=== PATIENT | male | born 1995 | race Two or more races ===

== ENCOUNTER 2023-11-30 07:55 | Inpatient (IN) | payer MEDICAID, OTHER ==
[~2023-11-30] VITALS: Ht 172.7 cm; Wt 80.5 kg
[2023-11-30] VITALS (7 sets, daily range): BP systolic 118–136; BP diastolic 80–92; PULSE 87–111; RESP 16–24; O2SAT 98–100
[2023-11-30] MEDS: SODIUM CHLORIDE 0.9% 1,000 ML IV ONE (08:20)
[2023-11-30 08:28] LABS: Basophils # (auto) 0 10 ^3/uL (0-0.2); Basophils % (auto) 0.3 % (0.0-2.0); Eosinophils # (auto) 0 10 ^3/uL (0-0.8); Eosinophils % (auto) 0.1 % (0.0-7.0); Hematocrit 45.1 % (41.0-53.0); Lymphocytes # (auto) 0.9 10 ^3/uL (0.4-5.4); Lymphocytes % (auto) 8.3 % (10.0-50.0); Mean Corpuscular Hemoglobin 29.1 pg (28.0-32.0); Mean Corpuscular Hgb Conc. 33.2 g/dL (32.0-36.0); Mean Corpuscular Volume 87.8 fL (80.0-100.0); Monocytes # (auto) 0.7 10 ^3/uL (0-1.3); Monocytes % (auto) 6.4 % (0.0-12.0); Neutrophils # (auto) 9.6 10 ^3/uL (1.6-8.6); Neutrophils % (auto) 84.9 % (37.0-80.0); Red Blood Cells 5.14 10^6/uL (4.5-5.90); Red Cell Distribution Width 15.6 % (11.8-14.3); White Blood Cell 11.3 10^3/uL (4.4-10.8)
[2023-11-30 08:34] LABS: Chloride 106 mmol/L (98-107); Potassium 3.4 mmol/L (3.5-5.1); Sodium 138 mmol/L (136-145)
[2023-11-30 08:35] LABS: Anion Gap 9 (5-15); Carbon Dioxide 23 mmol/L (20-30)
[2023-11-30 08:40] LABS: BUN/Creatinine Ratio 8.2 (10.0-20.0); Blood Urea Nitrogen 7 mg/dL (9-23); Glucose 100 mg/dL (74-106)
[2023-11-30 08:41] LABS: Blood Alcohol < 3.0 mg/dL (<10)
[2023-11-30] MEDS ORDERED: LORazepam 2MG/ML-1ML VIAL IV PRN (11:15)
[2023-11-30] MEDS ORDERED: DOCUSATE SOD 100 MG CAP PO PRN (11:15)
[2023-11-30] MEDS ORDERED: ONDANSETRON HCL 4 MG/2 ML VIAL IV PRN (11:15)
[2023-11-30] MEDS ORDERED: HALOPERIDOL LACTATE 5 MG/ML INJ VIAL IM ONE (14:23)
[2023-11-30] MEDS ORDERED: LORazepam 2MG/ML-1ML VIAL IM ONE (14:23)
[2023-11-30] MEDS ORDERED: diphenhdrAMINE HCL 50 MG/1 ML VL IM ONE (14:23)
[2023-11-30] MEDS: HALOPERIDOL LACTATE 5 MG/ML INJ VIAL IM ONE (14:41)
[2023-11-30] MEDS: LORazepam 2MG/ML-1ML VIAL ONE (14:41)
[2023-11-30] MEDS: diphenhdrAMINE HCL 50 MG/1 ML VL IM ONE (14:41)
[2023-11-30] MEDS: LORazepam 2MG/ML-1ML VIAL IM ONE (14:41)
[2023-11-30] MEDS: HALOPERIDOL LACTATE 5 MG/ML INJ VIAL ONE ×2 (14:41→14:42)
[2023-11-30] MEDS: diphenhdrAMINE HCL 50 MG/1 ML VL ONE (14:41)
[2023-11-30] MEDS: MIDAZOLAM DRIP 50 mg/50mL 50 ML IV ONE (17:26)
[2023-11-30] MEDS: ETOMIDATE (2MG/ML) 20ML VIAL IV ONE ×2 (17:30→18:24)
[2023-11-30] MEDS: MIDAZOLAM DRIP 50 mg/50mL 50 ML IV SCH (17:30)
[2023-11-30] MEDS: ROCURONIUM 10MG/ML 10ML VIAL IV ONE ×2 (17:30→18:24)
[2023-11-30] MEDS: KETAMINE 50mg/ML 10ml Vial (500mg/10ml) IV ONE (18:15)
[2023-11-30] MEDS: FOLIC ACID 1 MG, MAGNESIUM SULF SDV 50% 8 MEQ, MULTIPLE VITAMIN 10 ML, THIAMINE INJ 100... INJ SCH (18:17)
[2023-11-30] MEDS: SODIUM CHLORIDE 0.9% 1,000 ML IV SCH (18:17)
[2023-11-30] MEDS: POTASSIUM EFFERVESENT TAB 25 MEQ PO ONE (18:22)
[2023-11-30] MEDS: chlordiazePOXIDE HCL 25 MG CAP PO SCH (18:22)
[2023-11-30 18:35] LABS: Amphetamine Screen, Urine Neg (NEGATIVE)
[2023-11-30 18:36] LABS: Barbiturate Scree,Urine Neg (NEGATIVE); Benzodiazephine Screen, Urine Neg (NEGATIVE); Cannabinoid Screen, Urine Pos (NEGATIVE); Cocaine Screen, Urine Neg (NEGATIVE); Opiate Scree,Urine Neg (NEGATIVE); Phencyclidine Screen, Urine Neg (NEGATIVE)
[2023-11-30] MEDS: PROPOFOL 100 ML IV ONE (18:51)
[2023-11-30 19:00] LABS: Urine Amorphous Crystal FEW /hpf (None Seen); Urine Bacteria FEW /hpf (None Seen); Urine Blood 3+ /uL (Negative); Urine Clarity Ex.Turbid (Clear); Urine Color Yellow (Yellow); Urine Mucus FEW (None Seen); Urine Protein, UAD 2+ (Negative); Urine Specific Gravity 1.025 (1.001-1.035); Urine Urobilinogen Normal (Negative); Urine WBC 9 /hpf (0 - 3); Urine pH 5.5 (5.0-9.0)
[2023-11-30] MEDS: PROPOFOL 100 ML IV SCH (19:25)
[2023-11-30] MEDS: fentaNYL Drip 2500mCg/250mlNS 250 ML IV SCH (20:13)
[2023-11-30 20:19] LABS: Base Excess -3.6 mmol/L (-2.0-2.0)
[2023-11-30] MEDS: fentaNYL Drip 2500mCg/250mlNS 250 ML IV ONE (21:29)
[2023-11-30] MEDS: MORPHINE SULFATE 4 MG/ML SYR/VIAL IV ONE (21:40)
[2023-12-01] VITALS (13 sets, daily range): BP systolic 100–119; BP diastolic 53–74; PULSE 74–98; RESP 16–17; O2SAT 100
[2023-12-01 05:38] LABS: Basophils # (auto) 0 10 ^3/uL (0-0.2); Basophils % (auto) 0.5 % (0.0-2.0); Eosinophils # (auto) 0.1 10 ^3/uL (0-0.8); Eosinophils % (auto) 1.1 % (0.0-7.0); Hematocrit 39.4 % (41.0-53.0); Hemoglobin 13.3 g/dL (13.5-17.5); Lymphocytes # (auto) 1.2 10 ^3/uL (0.4-5.4); Lymphocytes % (auto) 17.8 % (10.0-50.0); Mean Corpuscular Hemoglobin 29.9 pg (28.0-32.0); Mean Corpuscular Hgb Conc. 33.6 g/dL (32.0-36.0); Mean Corpuscular Volume 89.1 fL (80.0-100.0); Monocytes # (auto) 0.6 10 ^3/uL (0-1.3); Monocytes % (auto) 9.1 % (0.0-12.0); Neutrophils % (auto) 71.5 % (37.0-80.0); Nucleated Red Blood Cells % 0.1 %; Red Blood Cells 4.43 10^6/uL (4.5-5.90); Red Cell Distribution Width 16.1 % (11.8-14.3)
[2023-12-01 05:43] LABS: Alanine Aminotransferase 77 U/L (7-40); Albumin 4.2 g/dL (3.2-4.8); Alkaline Phosphatase 65 U/L (46-116); Anion Gap 10 (5-15); Aspartate Aminotransferase 101 U/L (13-40); BUN/Creatinine Ratio 9.3 (10.0-20.0); Blood Urea Nitrogen 10 mg/dL (9-23); Calcium 9.1 mg/dL (8.7-10.4); Carbon Dioxide 23 mmol/L (20-30); Chloride 113 mmol/L (98-107); Glucose 80 mg/dL (74-106); Potassium 2.9 mmol/L (3.5-5.1)
[2023-12-01 05:44] LABS: Bilirubin, Total 0.8 mg/dL (0.2-1.0); Total Protein 6.2 g/dL (5.7-8.2)
[2023-12-01 05:50] LABS: Sodium 146 mmol/L (136-145)
[2023-12-01 07:28] LABS: Base Excess -3.9 mmol/L (-2.0-2.0)
[2023-12-01] MEDS ORDERED: chlordiazePOXIDE HCL 25 MG CAP PO SCH (10:00)
[2023-12-01] MEDS: POTASSIUM CHL 20MEQ/100ML 100 ML IV SCH (11:20)
[2023-12-01] MEDS: LORazepam 2MG/ML-1ML VIAL IV SCH (14:28)
[2023-12-02] VITALS (86 sets, daily range): BP systolic 100–142; BP diastolic 45–75; PULSE 71–104; RESP 10–19; TEMP 98.5–100.2; O2SAT 99–100
[2023-12-02 07:39] LABS: Base Excess -8.8 mmol/L (-2.0-2.0)
[2023-12-02 09:00] LABS: Basophils # (auto) 0 10 ^3/uL (0-0.2); Basophils % (auto) 0.4 % (0.0-2.0); Eosinophils # (auto) 0.2 10 ^3/uL (0-0.8); Eosinophils % (auto) 2.1 % (0.0-7.0); Hematocrit 37.8 % (41.0-53.0); Hemoglobin 12.5 g/dL (13.5-17.5); Lymphocytes # (auto) 0.7 10 ^3/uL (0.4-5.4); Lymphocytes % (auto) 9.7 % (10.0-50.0); Mean Corpuscular Hemoglobin 29.8 pg (28.0-32.0); Mean Corpuscular Hgb Conc. 33.1 g/dL (32.0-36.0); Mean Corpuscular Volume 89.9 fL (80.0-100.0); Monocytes # (auto) 0.7 10 ^3/uL (0-1.3); Monocytes % (auto) 9.1 % (0.0-12.0); Neutrophils # (auto) 5.6 10 ^3/uL (1.6-8.6); Neutrophils % (auto) 78.7 % (37.0-80.0); White Blood Cell 7.2 10^3/uL (4.4-10.8)
[2023-12-02 09:07] LABS: Chloride 119 mmol/L (98-107); Potassium 3.9 mmol/L (3.5-5.1); Sodium 147 mmol/L (136-145)
[2023-12-02 09:08] LABS: Anion Gap 11 (5-15); Calcium 8.7 mg/dL (8.7-10.4); Carbon Dioxide 17 mmol/L (20-30)
[2023-12-02 09:13] LABS: BUN/Creatinine Ratio 5.3 (10.0-20.0); Blood Urea Nitrogen 6 mg/dL (9-23); Glucose 68 mg/dL (74-106)
[2023-12-02] MEDS ORDERED: chlordiazePOXIDE HCL 25 MG CAP PO SCH (10:00)
[2023-12-03] VITALS (113 sets, daily range): BP systolic 104–179; BP diastolic 54–111; PULSE 69–173; RESP 12–33; TEMP 98.1–103.1; O2SAT 88–100
[2023-12-03 04:00] LABS: Anion Gap 10 (5-15); Carbon Dioxide 21 mmol/L (20-30); Chloride 116 mmol/L (98-107); Potassium 3.7 mmol/L (3.5-5.1); Sodium 147 mmol/L (136-145)
[2023-12-03 04:01] LABS: Basophils # (auto) 0 10 ^3/uL (0-0.2); Basophils % (auto) 0.4 % (0.0-2.0); Calcium 9.3 mg/dL (8.7-10.4); Eosinophils # (auto) 0.5 10 ^3/uL (0-0.8); Hematocrit 38.6 % (41.0-53.0); Hemoglobin 13.1 g/dL (13.5-17.5); Lymphocytes # (auto) 1.4 10 ^3/uL (0.4-5.4); Lymphocytes % (auto) 17.9 % (10.0-50.0); Mean Corpuscular Hemoglobin 30.5 pg (28.0-32.0); Mean Corpuscular Hgb Conc. 33.8 g/dL (32.0-36.0); Mean Corpuscular Volume 90.1 fL (80.0-100.0); Monocytes # (auto) 0.9 10 ^3/uL (0-1.3); Monocytes % (auto) 11.1 % (0.0-12.0); Neutrophils % (auto) 64.6 % (37.0-80.0); Red Blood Cells 4.28 10^6/uL (4.5-5.90); Red Cell Distribution Width 16.9 % (11.8-14.3); White Blood Cell 7.8 10^3/uL (4.4-10.8)
[2023-12-03 04:05] LABS: Glucose 73 mg/dL (74-106)
[2023-12-03 04:06] LABS: BUN/Creatinine Ratio 7.1 (10.0-20.0); Blood Urea Nitrogen 8 mg/dL (9-23)
[2023-12-03] MEDS ORDERED: chlordiazePOXIDE HCL 25 MG CAP PO SCH (07:00)
[2023-12-03 07:49] LABS: Base Excess -8.1 mmol/L (-2.0-2.0)
[2023-12-03] MEDS: PANTOPRAZOLE 40 MG/10 ML VIAL INJ IV SCH (09:31)
[2023-12-03] MEDS: ENOXAPARIN SOD 40 MG/0.4 ML SYRINGE SC SCH (09:31)
[2023-12-03] MEDS: ACETAMINOPHEN 650 mg PER 20.3 mL UD GT PRN (17:51)
[2023-12-03] MEDS ORDERED: hydrALAZINE HCL 20 MG/ML VL IV PRN (18:30)
[2023-12-03] MEDS: SODIUM CHLORIDE 0.9% 1,000 ML IV SCH (18:44)
[2023-12-03] MEDS: FUROSEMIDE 40 MG/4 ML VIAL IV ONE (18:49)
[2023-12-03] MEDS: PIPERACILLIN-TAZOB 3.375GM 100 ML IV SCH (20:19)
[2023-12-03] MEDS: dilTIAZem 25 MG/5 ML VIAL IV ONE ×2 (21:05)
[2023-12-03] MEDS: ROCURONIUM 10MG/ML 10ML VIAL IV ONE ×2 (22:30→23:33)
[2023-12-03] MEDS: ACETAMINOPHEN IV 1000 MG/100ML (10MG/ML) IV ONE (22:30)
[2023-12-03] MEDS: ACETAMINOPHEN IV 100 ML IV ONE (23:34)
[2023-12-04] VITALS (103 sets, daily range): BP systolic 87–153; BP diastolic 43–99; PULSE 74–157; RESP 15–26; TEMP 95.5–102; O2SAT 90–100
[2023-12-04 03:18] LABS: Basophils # (auto) 0 10 ^3/uL (0-0.2); Basophils % (auto) 0.5 % (0.0-2.0); Eosinophils # (auto) 0 10 ^3/uL (0-0.8); Eosinophils % (auto) 0.2 % (0.0-7.0); Hematocrit 44.8 % (41.0-53.0); Hemoglobin 14.6 g/dL (13.5-17.5); Lymphocytes # (auto) 0.5 10 ^3/uL (0.4-5.4); Lymphocytes % (auto) 6.3 % (10.0-50.0); Mean Corpuscular Hemoglobin 29.3 pg (28.0-32.0); Mean Corpuscular Hgb Conc. 32.6 g/dL (32.0-36.0); Monocytes # (auto) 1.1 10 ^3/uL (0-1.3); Monocytes % (auto) 13.5 % (0.0-12.0); Neutrophils # (auto) 6.6 10 ^3/uL (1.6-8.6); Neutrophils % (auto) 79.5 % (37.0-80.0); Nucleated Red Blood Cells % 0.1 %; Red Blood Cells 4.98 10^6/uL (4.5-5.90); Red Cell Distribution Width 16.2 % (11.8-14.3); White Blood Cell 8.3 10^3/uL (4.4-10.8)
[2023-12-04 03:32] LABS: Chloride 110 mmol/L (98-107); Potassium 3.7 mmol/L (3.5-5.1); Sodium 144 mmol/L (136-145)
[2023-12-04 03:33] LABS: Anion Gap 13 (5-15); Carbon Dioxide 21 mmol/L (20-30)
[2023-12-04 03:38] LABS: Glucose 81 mg/dL (74-106)
[2023-12-04 03:45] LABS: Blood Urea Nitrogen < 5 mg/dL (9-23)
[2023-12-04] MEDS: FUROSEMIDE 40 MG/4 ML VIAL IV SCH (05:52)
[2023-12-04 09:26] LABS: Base Excess -4.7 mmol/L (-2.0-2.0)
[2023-12-04] MEDS: Jevity 1.2 Cal/Fiber 1 Liter GT SCH (17:06)
[2023-12-05] VITALS (106 sets, daily range): BP systolic 86–145; BP diastolic 40–110; PULSE 70–146; RESP 13–23; TEMP 97.7–101.7; O2SAT 91–100
[2023-12-05 04:25] LABS: Basophils # (auto) 0 10 ^3/uL (0-0.2); Basophils % (auto) 0.3 % (0.0-2.0); Eosinophils # (auto) 0.4 10 ^3/uL (0-0.8); Eosinophils % (auto) 3.9 % (0.0-7.0); Hematocrit 37.9 % (41.0-53.0); Hemoglobin 12.7 g/dL (13.5-17.5); Lymphocytes # (auto) 0.7 10 ^3/uL (0.4-5.4); Mean Corpuscular Hemoglobin 29.2 pg (28.0-32.0); Mean Corpuscular Hgb Conc. 33.4 g/dL (32.0-36.0); Mean Corpuscular Volume 87.4 fL (80.0-100.0); Monocytes # (auto) 0.6 10 ^3/uL (0-1.3); Monocytes % (auto) 6.5 % (0.0-12.0); Neutrophils # (auto) 7.5 10 ^3/uL (1.6-8.6); Neutrophils % (auto) 81.3 % (37.0-80.0); Red Blood Cells 4.34 10^6/uL (4.5-5.90); Red Cell Distribution Width 16.3 % (11.8-14.3); White Blood Cell 9.2 10^3/uL (4.4-10.8)
[2023-12-05 04:39] LABS: Chloride 111 mmol/L (98-107); Potassium 2.8 mmol/L (3.5-5.1); Sodium 145 mmol/L (136-145)
[2023-12-05 04:40] LABS: Anion Gap 8 (5-15); Carbon Dioxide 26 mmol/L (20-30)
[2023-12-05 04:41] LABS: Calcium 9.1 mg/dL (8.5-10.1)
[2023-12-05 04:45] LABS: Blood Urea Nitrogen 8 mg/dL (9-23); Glucose 123 mg/dL (74-106)
[2023-12-05 07:35] LABS: Base Excess 1.3 mmol/L (-2.0-2.0)
[2023-12-05] MEDS: POTASSIUM CHL 20MEQ/100ML 100 ML IV SCH ×2 (07:37→21:42)
[2023-12-05 11:35] LABS: INR 1.02 (0.9-1.15); Partial Thromboplastin Time 32.8 SEC (24.5-34.5); Prothrombin Time 10.8 sec (9.3-11.8)
[2023-12-05] MEDS: PHENobarbital SODIUM 130 MG/ML VL IV ONE (12:17)
[2023-12-05 12:30] LABS: Albumin 4.2 g/dL (3.2-4.8); Bilirubin, Total 0.6 mg/dL (0.2-1.0); Total Protein 7.2 g/dL (5.7-8.2)
[2023-12-05 13:56] LABS: Urine Bacteria FEW /hpf (None Seen); Urine Blood 1+ /uL (Negative); Urine Clarity Clear (Clear); Urine Color Light-Yellow (Yellow); Urine Protein, UAD Negative (Negative); Urine Specific Gravity 1.007 (1.001-1.035); Urine Urobilinogen Normal (Negative); Urine WBC 1 /hpf (0 - 3); Urine pH 5.5 (5.0-9.0)
[2023-12-05 16:17] LABS: Bilirubin, Direct 0.3 mg/dL (<0.3)
[2023-12-06] VITALS (104 sets, daily range): BP systolic 11–151; BP diastolic 39–99; PULSE 64–135; RESP 10–54; TEMP 97.5–99.5; O2SAT 94–100
[2023-12-06 04:56] LABS: Basophils # (auto) 0 10 ^3/uL (0-0.2); Basophils % (auto) 0.4 % (0.0-2.0); Eosinophils # (auto) 0.6 10 ^3/uL (0-0.8); Eosinophils % (auto) 8.3 % (0.0-7.0); Hematocrit 34.4 % (41.0-53.0); Hemoglobin 11.7 g/dL (13.5-17.5); Lymphocytes # (auto) 1.2 10 ^3/uL (0.4-5.4); Lymphocytes % (auto) 17.6 % (10.0-50.0); Mean Corpuscular Hemoglobin 29.8 pg (28.0-32.0); Mean Corpuscular Hgb Conc. 33.9 g/dL (32.0-36.0); Monocytes # (auto) 0.4 10 ^3/uL (0-1.3); Neutrophils # (auto) 4.8 10 ^3/uL (1.6-8.6); Neutrophils % (auto) 67.7 % (37.0-80.0); Nucleated Red Blood Cells % 0.1 %; Red Blood Cells 3.91 10^6/uL (4.5-5.90); Red Cell Distribution Width 16.3 % (11.8-14.3); White Blood Cell 7.1 10^3/uL (4.4-10.8)
[2023-12-06 05:12] LABS: Alanine Aminotransferase 26 U/L (7-40); Albumin 3.5 g/dL (3.2-4.8); Alkaline Phosphatase 95 U/L (46-116); Anion Gap 6 (5-15); Aspartate Aminotransferase 39 U/L (13-40); Blood Urea Nitrogen 12 mg/dL (9-23); Carbon Dioxide 28 mmol/L (20-30); Chloride 112 mmol/L (98-107); Glucose 104 mg/dL (74-106); Magnesium 2.5 mg/dL (1.6-2.6); Potassium 3.6 mmol/L (3.5-5.1); Sodium 146 mmol/L (136-145)
[2023-12-06 05:13] LABS: Bilirubin, Total 0.4 mg/dL (0.2-1.0); Total Protein 5.9 g/dL (5.7-8.2)
[2023-12-06 05:15] LABS: Free T3 1.89 pg/mL (2.3-4.2); Free T4 (Free Thyroxine) 0.87 ng/dL (0.89-1.76)
[2023-12-06 07:27] LABS: Base Excess 0.7 mmol/L (-2.0-2.0)
[2023-12-06] MEDS: POTASSIUM EFFERVESENT TAB 25 MEQ GT ONE (07:41)
[2023-12-06] MEDS: POTASSIUM CHL 20MEQ/100ML 100 ML IV ONE (07:41)
[2023-12-06] MEDS ORDERED: PHENobarbital SODIUM 130 MG/ML VL IV SCH ×2 (08:00)
[2023-12-06] MEDS: PHENobarbital SODIUM 65 MG/ML VL IV SCH (10:14)
[2023-12-06] MEDS ORDERED: LORazepam 2MG/ML-1ML VIAL IV SCH ×2 (15:00)
[2023-12-06] MEDS: LORazepam 2MG/ML-1ML VIAL IV PRN (15:42)
[2023-12-06] MEDS: OXYMETAZOLINE HCL 0.05 % NASAL SPRAY 15ML EACHNOSTRI ONE (16:00)
[2023-12-06] MEDS: PIPERACILLIN-TAZOB 3.375GM 100 ML IV SCH (21:41)
[2023-12-07] VITALS (40 sets, daily range): BP systolic 114–162; BP diastolic 55–109; PULSE 88–122; RESP 11–55; TEMP 98.4–100.2; O2SAT 94–100
[2023-12-07 03:59] LABS: Basophils # (auto) 0 10 ^3/uL (0-0.2); Basophils % (auto) 0.3 % (0.0-2.0); Eosinophils # (auto) 0.2 10 ^3/uL (0-0.8); Eosinophils % (auto) 1.6 % (0.0-7.0); Hematocrit 37.9 % (41.0-53.0); Hemoglobin 12.9 g/dL (13.5-17.5); Lymphocytes # (auto) 0.9 10 ^3/uL (0.4-5.4); Mean Corpuscular Hemoglobin 29.9 pg (28.0-32.0); Monocytes # (auto) 0.8 10 ^3/uL (0-1.3); Monocytes % (auto) 7.3 % (0.0-12.0); Neutrophils # (auto) 8.6 10 ^3/uL (1.6-8.6); Neutrophils % (auto) 81.8 % (37.0-80.0); Red Blood Cells 4.31 10^6/uL (4.5-5.90); Red Cell Distribution Width 16.2 % (11.8-14.3); White Blood Cell 10.5 10^3/uL (4.4-10.8)
[2023-12-07 04:01] LABS: Alanine Aminotransferase 31 U/L (7-40); Albumin 4.3 g/dL (3.2-4.8); Alkaline Phosphatase 132 U/L (46-116); Anion Gap 9 (5-15); Aspartate Aminotransferase 52 U/L (13-40); BUN/Creatinine Ratio 9.4 (10.0-20.0); Blood Urea Nitrogen 9 mg/dL (9-23); Calcium 10.1 mg/dL (8.7-10.4); Carbon Dioxide 28 mmol/L (20-30); Chloride 107 mmol/L (98-107); Glucose 104 mg/dL (74-106); Magnesium 2.2 mg/dL (1.6-2.6); Potassium 3.6 mmol/L (3.5-5.1); Sodium 144 mmol/L (136-145)
[2023-12-07 04:02] LABS: Bilirubin, Total 0.4 mg/dL (0.2-1.0); Total Protein 7.1 g/dL (5.7-8.2)
[2023-12-07] MEDS: POTASSIUM CHLORIDE 40 MEQ, LIDOCAINE 1% (LOCAL ANESTH.) 4 ML in SODIUM CHL 0.9% 250 ML IV ONE (08:23)
[2023-12-08] VITALS (8 sets, daily range): BP systolic 126–147; BP diastolic 76–95; PULSE 74–100; RESP 18–22; TEMP 98.4–100.2; O2SAT 95–98
[2023-12-08] MEDS: LORazepam 2MG/ML-1ML VIAL IV PRN (04:03)
[2023-12-08 06:18] LABS: Basophils # (auto) 0 10 ^3/uL (0-0.2); Basophils % (auto) 0.3 % (0.0-2.0); Eosinophils # (auto) 0.1 10 ^3/uL (0-0.8); Eosinophils % (auto) 0.8 % (0.0-7.0); Hematocrit 37.8 % (41.0-53.0); Hemoglobin 12.7 g/dL (13.5-17.5); Lymphocytes # (auto) 1.1 10 ^3/uL (0.4-5.4); Lymphocytes % (auto) 12.6 % (10.0-50.0); Mean Corpuscular Hemoglobin 29.2 pg (28.0-32.0); Mean Corpuscular Hgb Conc. 33.7 g/dL (32.0-36.0); Mean Corpuscular Volume 86.8 fL (80.0-100.0); Monocytes # (auto) 0.7 10 ^3/uL (0-1.3); Monocytes % (auto) 8.5 % (0.0-12.0); Neutrophils # (auto) 6.8 10 ^3/uL (1.6-8.6); Neutrophils % (auto) 77.8 % (37.0-80.0); Nucleated Red Blood Cells % 0.1 %; Red Blood Cells 4.36 10^6/uL (4.5-5.90); White Blood Cell 8.7 10^3/uL (4.4-10.8)
[2023-12-08 06:41] LABS: Alanine Aminotransferase 31 U/L (7-40); Albumin 4.3 g/dL (3.2-4.8); Alkaline Phosphatase 117 U/L (46-116); Anion Gap 12 (5-15); BUN/Creatinine Ratio 14.8 (10.0-20.0); Blood Urea Nitrogen 12 mg/dL (9-23); Calcium 9.7 mg/dL (8.7-10.4); Carbon Dioxide 23 mmol/L (20-30); Chloride 103 mmol/L (98-107); Glucose 94 mg/dL (74-106); Magnesium 2.1 mg/dL (1.6-2.6); Potassium 3.2 mmol/L (3.5-5.1); Sodium 138 mmol/L (136-145)
[2023-12-08 06:42] LABS: Aspartate Aminotransferase 50 U/L (13-40); Bilirubin, Total 0.4 mg/dL (0.2-1.0); Total Protein 7.1 g/dL (5.7-8.2)
[2023-12-08] MEDS: POTASSIUM EFFERVESENT TAB 25 MEQ GT ONE (11:47)
[2023-12-08] MEDS: chlordiazePOXIDE HCL 25 MG CAP PO PRN (19:55)
[2023-12-08] MEDS ORDERED: OLANZapine 5 MG TAB PO SCH (22:00)
[2023-12-08] MEDS: HALOPERIDOL 5 MG TAB PO SCH (22:21)
[2023-12-09] VITALS (7 sets, daily range): BP systolic 111–131; BP diastolic 54–84; PULSE 61–94; RESP 18–19; TEMP 97.9–99.6; O2SAT 97–99
[2023-12-09 06:03] LABS: Hemoglobin 13.3 g/dL (13.5-17.5)
[2023-12-09 06:05] LABS: Mean Corpuscular Hemoglobin 29.6 pg (28.0-32.0); Mean Corpuscular Hgb Conc. 34.1 g/dL (32.0-36.0); Mean Corpuscular Volume 86.9 fL (80.0-100.0); Red Blood Cells 4.49 10^6/uL (4.5-5.90); Red Cell Distribution Width 15.7 % (11.8-14.3); White Blood Cell 8.8 10^3/uL (4.4-10.8)
[2023-12-09 06:14] LABS: Basophils % (manual) 0 (0.0-2.0); Blast Cells 0; Metamyelocytes % 0; Myelocytes % 0; Promyelocytes % 0; Reactive Lymphocytes 0
[2023-12-09 06:22] LABS: Chloride 103 mmol/L (98-107); Potassium 3.2 mmol/L (3.5-5.1); Sodium 138 mmol/L (136-145)
[2023-12-09 06:23] LABS: Anion Gap 11 (5-15); Calcium 9.9 mg/dL (8.5-10.1); Carbon Dioxide 24 mmol/L (20-30)
[2023-12-09 06:26] LABS: Band Neutrophils % (manual) 3; Eosinophils % (manual) 1 (0-7); Lymphocytes % (manual) 23 (10.0-50.0); Monocytes % (manual) 5 (0-12); Platelet Estimate Increased
[2023-12-09 06:28] LABS: BUN/Creatinine Ratio 14.5 (10.0-20.0); Blood Urea Nitrogen 12 mg/dL (9-23); Glucose 93 mg/dL (74-106)
[2023-12-09] MEDS: POTASSIUM EFFERVESENT TAB 25 MEQ PO ONE (18:15)
[2023-12-10] VITALS (7 sets, daily range): BP systolic 111–146; BP diastolic 53–92; PULSE 68–92; RESP 16–18; TEMP 97.9–98.7; O2SAT 97–98
[2023-12-10 06:21] LABS: Potassium 3.4 mmol/L (3.5-5.1)
[2023-12-10] MEDS: PANTOPRAZOLE 40 MG/10 ML VIAL INJ IV SCH (09:44)
[2023-12-10] MEDS: OLANZapine 5 MG TAB PO ONE (17:52)
[2023-12-10] MEDS: POTASSIUM CHLORIDE 8 MEQ TAB PO ONE (17:52)
[2023-12-10] MEDS: ALPRAZolam 0.5 MG TAB PO ONE (17:52)
[2023-12-11 01:00] VITALS: BP 100/46; PULSE 79; RESP 16; TEMP 98.3; O2SAT 96
[2023-12-11 05:00] VITALS: BP 109/53; PULSE 90; RESP 20; TEMP 98.5; O2SAT 97
[2023-12-11 08:00] VITALS: BP_SYST 127; BP_SYST 148; BP_DIAS 81; BP_DIAS 82; PULSE 116; PULSE 77; PULSE 81; RESP 18; TEMP 97.9; TEMP 98.5; O2SAT 99
[2023-12-11] MEDS ORDERED: GADOTERATE MEG 10 MMOL/20ml INJ (0.5MMOL/ml) IV ONE (08:10)
[2023-12-11] MEDS: OLANZapine 5 MG TAB PO SCH (09:44)
[2023-12-11] MEDS: POTASSIUM EFFERVESENT TAB 25 MEQ PO ONE (09:45)
[2023-12-11 09:48] LABS: Eosinophils # (auto) 0.1 10 ^3/uL (0-0.8); Lymphocytes # (auto) 1.5 10 ^3/uL (0.4-5.4); Mean Corpuscular Volume 87.3 fL (80.0-100.0); Nucleated Red Blood Cells % 0.1 %
[2023-12-11 09:54] LABS: Basophils # (auto) 0.1 10 ^3/uL (0-0.2); Basophils % (auto) 0.9 % (0.0-2.0); Eosinophils % (auto) 2.2 % (0.0-7.0); Hematocrit 42.7 % (41.0-53.0); Hemoglobin 14.5 g/dL (13.5-17.5); Lymphocytes % (auto) 23.7 % (10.0-50.0); Mean Corpuscular Hemoglobin 29.7 pg (28.0-32.0); Monocytes # (auto) 0.4 10 ^3/uL (0-1.3); Monocytes % (auto) 6.7 % (0.0-12.0); Neutrophils # (auto) 4.2 10 ^3/uL (1.6-8.6); Neutrophils % (auto) 66.5 % (37.0-80.0); Red Blood Cells 4.89 10^6/uL (4.5-5.90); White Blood Cell 6.3 10^3/uL (4.4-10.8)
[2023-12-11 10:03] LABS: Chloride 102 mmol/L (98-107); Potassium 3.1 mmol/L (3.5-5.1); Sodium 138 mmol/L (136-145)
[2023-12-11 10:04] LABS: Anion Gap 9 (5-15); Carbon Dioxide 27 mmol/L (20-30)
[2023-12-11 10:05] LABS: Calcium 10.1 mg/dL (8.5-10.1)
[2023-12-11 10:09] LABS: Glucose 109 mg/dL (74-106)
[2023-12-11 10:10] LABS: BUN/Creatinine Ratio 15.1 (10.0-20.0); Blood Urea Nitrogen 13 mg/dL (9-23)
[2023-12-11 12:00] VITALS: BP 114/72; PULSE 91; RESP 18; TEMP 98.1; O2SAT 97
[2023-12-11 13:14] LABS: Magnesium 2.1 mg/dL (1.6-2.6)
[2023-12-11] MEDS ORDERED: POTASSIUM EFFERVESENT TAB 25 MEQ PO ONE (15:45)
[2023-12-11] MEDS ORDERED: OLAN1TAB7 PO (16:19)
== END 2023-12-11 17:45 | disposition home or self-care (01) | DRG 816 ==
LOC: ER 07:55 → OVERFLOW 12:36 → TELE-WESTW 12-01 18:09 → ICU WEST 12-02 05:08 → TELE-WESTW 12-07 18:14
PROVIDERS: ADMIT Internal Medicine; ATTEND Internal Medicine
PROC: 5A1955Z Respiratory Ventilation, Greater than 96 Consecutive Hours (ICD-10-PCS; principal; 2023-11-30)
PROC: 0BH17EZ Insertion of Endotracheal Airway into Trachea, Via Natural or Artificial Opening (ICD-10-PCS; 2023-11-30)
PROC: 05HM33Z Insertion of Infusion Device into Right Internal Jugular Vein, Percutaneous Approach (ICD-10-PCS; 2023-11-30)
PROC: B543ZZA Ultrasonography of Right Jugular Veins, Guidance (ICD-10-PCS; 2023-11-30)
DX: T51.91XA Toxic effect of unspecified alcohol, accidental (unintentional), initial encounter (principal); J96.01 Acute respiratory failure with hypoxia; J69.0 Pneumonitis due to inhalation of food and vomit; G92.8 Other toxic encephalopathy; E86.0 Dehydration; F10.139 Alcohol abuse with withdrawal, unspecified; F10.151 Alcohol abuse with alcohol-induced psychotic disorder with hallucinations; E87.6 Hypokalemia; E55.9 Vitamin D deficiency, unspecified; E03.9 Hypothyroidism, unspecified; F10.129 Alcohol abuse with intoxication, unspecified; F19.10 Other psychoactive substance abuse, uncomplicated; Y90.9 Presence of alcohol in blood, level not specified
CPT/HCPCS: 36415; 36600; 70450; 70553; 71045; 80048; 80053; 80076; 80307; 80320; 81001; 82140; 82306; 82607; 82805; 83735; 84132; 84439; 84443; 84481; 85007; 85025; 85027; 85610; 85730; 86141; 87040; 87070; 87081; 87086; 87205; 92610; 93005; 94002; 94003; 94640; 97110; 97116; 97163; 97530; 99291; C9113; G0378; J0131; J2001; J2250; J2543; J2704; J3480; J7060